=== PATIENT | male | born 1995 | race Caucasian/White ===

== ENCOUNTER 2017-03-20 22:22 | Emergency (ER) | payer SELFPAY ==
[~2017-03-20] VITALS: Ht 162.6 cm; Wt 54.0 kg
[2017-03-20 22:50] VITALS: BP 104/72
== END 2017-03-20 23:18 | disposition home or self-care (01) ==
LOC: ER 22:58
DX: F15.188 Other stimulant abuse with other stimulant-induced disorder (principal); R42 Dizziness and giddiness; R51 Headache; R03.0 Elevated blood-pressure reading, without diagnosis of hypertension; F25.0 Schizoaffective disorder, bipolar type
CPT/HCPCS: 99283